=== PATIENT | male | born 1950 | race Caucasian/White ===

== ENCOUNTER 2024-06-09 08:29 | Emergency (ER) | payer OTHER ==
--- NOTE | 2024-06-09 09:13 | RAD REPORT ---
EXAMINATION: ONE VIEW CHEST XR CLINICAL INDICATION: Male, 73 years old.,COUGH TECHNIQUE: Frontal chest projection is submitted. Examination is limited by patient positioning and t echnique. COMPARISON: No prior exam. FINDINGS: The lungs are well inflated and clear. No pneumothorax or sizable effusion. The heart is normal in s ize. Mediastinal contours are unremarkable. IMPRESSION: No acute intrathoracic abnormalities.
[2024-06-09 10:25] LABS: Absolute Lymphocytes (CBC) 0.4 K/uL (0.7-4.9); Absolute Monocytes 0.6 K/uL (0.1-1.3); Absolute Neutrophil 5.2 K/uL (1.8-8.0); Basophils % 0.4 % (0-1.3); Eosinophils % 0.4 % (0-4.4); Hematocrit 41.5 % (39.6-49.0); Lymphocytes % 6.6 % (15.3-44.8); MCH 30.8 pg (27.0-35.0); MCHC 33.7 g/dL (32.0-36.0); MCV 91.4 fL (80-100); MPV 9.2 fL (7.6-11.3); Monocytes % 9.4 % (3.3-12.3); Neutrophils % 83.2 % (41.7-73.7); Nucleated Red Blood Cells % 0.1 % (0-0); Platelets 123 thou/uL (152-406); RBC Red Blood Cell Count 4.54 M/uL (4.33-5.43); Red Cell Distribution Width 13.3 % (12.1-15.2)
[2024-06-09 10:36] LABS: Anion Gap 7.6 mEq/L (5.0-15.0); Potassium 3.6 mEq/L (3.5-5.1)
[2024-06-09 10:48] LABS: SARS-CoV-2 Antigen CONTROL BLUE LINE VIS/BG OK; SARS-CoV-2 Antigen Rapid Res Positive (Negative)
--- NOTE | 2024-06-09 10:50 | EDPHYS ---
Physician Documentation [facility] Name: José Villanueva Age: 73 yrs Sex: Male : 1950 Arrival Date: 06/09/2024 Time: 08:29 Bed 7 Private MD: ED Physician Alex Beauchamp HPI: 06/09 10:49 This 73 yrs old Male presents to ER via Ambulatory with complaints of Flu ec2 Symptoms. 10:49 Patient arrives today for evaluation of URI signs and symptoms. Reports cough and ec2 congestion, rhinorrhea, frequent cough. No vomiting, no diarrhea.. Historical: - Allergies: 08:50 No Known Allergies; ss - Home Meds: 08:50 levothyroxine 100 mcg oral capsule 1 cap daily for hypothyroidism [Active]; pravastatin ss 40 mg oral tablet 1 tab daily [Active]; Metformin Oral [Active]; allopurinol 300 mg Oral tablet 1 tab daily [Active]; amlodipine 5 mg tablet 1 tab daily [Active]; montelukast 10 mg oral tablet 1 tab daily [Active]; fenofibrate 54 mg oral tablet 1 tab daily [Active]; propranolol 80 mg Oral tablet 0.5 tabs once [Active]; valsartan 320 mg oral tablet 1 tab daily [Active]; - PMHx: 08:50 Hypertensive disorder; Kidney disease; Diabetes mellitus; Hypothyroidism; ss - Immunization history:: Adult Immunizations up to date. - Infectious Disease History:: Denies. - Social history:: Smoking status: Patient denies any tobacco usage or history of. Patient/guardian denies using alcohol. ROS: 10:49 Constitutional: as per hpi ec2 Exam: 10:49 Constitutional: GEN: NAD Head: atraumatic Eyes: EOMI Ears: External ears are ec2 normal. CV: regular rate LUNGS: no respiratory distress ABD: non-distended SKIN: no evidence of rashes MSK: no evidence of trauma Vital Signs: 08:46 BP 138 / 75; Pulse 83; Resp 16; Temp 99.3(O); Pulse Ox 97% on R/A; Weight 102.06 kg; ss Height 5 ft. 10 in. ; Pain 4/10; 08:46 Body Mass Index 32.28 (102.06 kg, 177.8 cm) ss 08:46 Pain Scale: Adult ss MDM: 08:37 Medical Screening Exam initiated ec2 10:49 Data reviewed: vital signs, nurses notes. ED course: Patient arrives today for URI ec2 symptoms. Examination is unrevealing. Viral swabs obtained, patient is COVID-positive. Chest x-ray independently reviewed and interpreted by me, shows no lobar consolidation. Presentation consistent with coronavirus. Will discharge home. Return precautions reviewed.. 06/09 08:42 Order name: Influenza Screen (a \T\ B); Complete Time: 10:50 ec2 06/09 08:42 Order name: SARS RAPID; Complete Time: 10:50 ec2 06/09 08:42 Order name: CBC with Diff; Complete Time: 10:40 ec2 06/09 08:42 Order name: BMP; Complete Time: 10:40 ec2 06/09 08:42 Order name: CXR XRAY; Complete Time: 09:18 ec2 Administered Medications: 10:56 CANCELLED (Physician Discretion): mg IVP once ec2 11:26 Drug: Tessalon Perle PO 100 mg PO once Route: PO; 11:26 Follow up: Response: Medication administered at discharge. Disposition Summary: 06/09/24 10:50 Discharge Ordered Notes: Location: Home ec2 Condition: Stable ec2 Diagnosis - SARS-associated coronavirus as the cause of diseases classified elsewhere ec2 Followup: ec2 - With: Private Physician - When: - Reason: Re-evaluation by your physician Discharge Instructions: - Discharge Summary Sheet ec2 - COVID-19 ec2 Forms: - Medication Reconciliation Form ec2 - Antibiotic Education ec2 - Prescription Opioid Use ec2 - Patient Portal Instructions ec2 - Leadership Thank You Letter ec2 Prescriptions: - Paxlovid 300 mg (150 mg x 2)-100 mg Oral Tablet, Dose Pack - take 1 dose pack ORAL route as directed on dose pack take ONE 150 mg tablet of ec2 nirmatrelvir with ONE 100 mg tablet of ritonavir twice daily for 5 days; 1 unit; Refills: 0, Product Selection Permitted - Tessalon Perles 100 mg Oral Capsule - take 1 capsule ORAL route every 8 hours As needed; 15 capsule; Refills: 0, ec2 Product Selection Permitted Signatures: Dispatcher [employer] Ronel Avina RN RN Brenda Toledo RN RN hb Alex Beauchamp MD MD ec2 Corrections: (The following items were deleted from the chart) 08: 08:43 Influenza Screen (A \T\ B)+BA.LAB.BRZ ordered. EDMS EDMS 08:43 08:43 SARS-COV-2 Antigen Rapid+I.LAB.BRZ ordered. EDMS EDMS 08:43 08:43 CBC+H.LAB.BRZ ordered. EDMS EDMS 08:43 08:43 BASIC METABOLIC PANEL+C.LAB.BRZ ordered. EDMS EDMS 08:43 08:43 Chest Single View+RAD.RAD.BRZ ordered. EDMS EDMS 08:55 08:50 PMHx: thyroid problems; ss ss 10:56 10:52 Ketorolac IVP 15 mg IVP once ordered. ec2 ec2
--- NOTE | 2024-06-09 10:50 | ER ---
Nurse's Notes [facility] Name: José Villanueva Age: 73 yrs Sex: Male : 1950 Arrival Date: 06/09/2024 Time: 08:29 Bed 7 Private MD: Diagnosis: SARS-associated coronavirus as the cause of diseases classified elsewhere Presentation: 06/09 08:46 Chief complaint: Patient states: cough and congestion that began 2-3 days ago. ss Coronavirus screen: Client denies travel out of the [place] in the last 14 days. Ebola Screen: Patient denies exposure to infectious person. Patient denies travel to an Ebola-affected area in the 21 days before illness onset. Initial Sepsis Screen: Does the patient meet any 2 criteria? No. Patient's initial sepsis screen is negative. Does the patient have a suspected source of infection? No. Patient's initial sepsis screen is negative. Risk Assessment: Do you want to hurt yourself or someone else? Patient reports no desire to harm self or others. Onset of symptoms was June 07, 2024. 08:46 Method Of Arrival: Ambulatory 08:46 Acuity: AKASH 3 ss Historical: - Allergies: 08:50 No Known Allergies; ss - Home Meds: 08:50 levothyroxine 100 mcg oral capsule 1 cap daily for hypothyroidism [Active]; pravastatin ss 40 mg oral tablet 1 tab daily [Active]; Metformin Oral [Active]; allopurinol 300 mg Oral tablet 1 tab daily [Active]; amlodipine 5 mg tablet 1 tab daily [Active]; montelukast 10 mg oral tablet 1 tab daily [Active]; fenofibrate 54 mg oral tablet 1 tab daily [Active]; propranolol 80 mg Oral tablet 0.5 tabs once [Active]; valsartan 320 mg oral tablet 1 tab daily [Active]; - PMHx: 08:50 Hypertensive disorder; Kidney disease; Diabetes mellitus; Hypothyroidism; ss - Immunization history:: Adult Immunizations up to date. - Infectious Disease History:: Denies. - Social history:: Smoking status: Patient denies any tobacco usage or history of. Patient/guardian denies using alcohol. Screenin:45 [facility] ED Fall Risk Assessment (Adult) History of falling in the last 3 months, hb including since admission No falls in past 3 months (0 pts) Confusion or Disorientation No (0 pts) Intoxicated or Sedated No (0 pts) Impaired Gait No (0 pts) Mobility Assist Device Used No (0 pt) Altered Elimination No (0 pt) Score/Fall Risk Level 0 - 2 = Low Risk Oriented to surroundings, Maintained a safe environment, Educated pt \T\ family on fall prevention, incl call for assistance when getting out of bed. Abuse screen: Denies threats or abuse. Denies injuries from another. Nutritional screening: No deficits noted. Tuberculosis screening: No symptoms or risk factors identified. Assessment: 10:45 General: Appears in no apparent distress. Behavior is calm, cooperative. Pain: Pain hb currently is 4 out of 10 on a pain scale. Neuro: Level of Consciousness is awake, alert, obeys commands, Oriented to person, place, time, situation. Cardiovascular: Patient's skin is warm and dry. Respiratory: Reports shortness of breath cough that is Respiratory effort is even, unlabored, Respiratory pattern is regular, symmetrical. GI: No signs and/or symptoms were reported involving the gastrointestinal system. : No signs and/or symptoms were reported regarding the genitourinary system. EENT: No signs and/or symptoms were reported regarding the EENT system. Derm: Skin is pink, warm \T\ dry. Musculoskeletal: Reports body aches. Vital Signs: 08:46 BP 138 / 75; Pulse 83; Resp 16; Temp 99.3(O); Pulse Ox 97% on R/A; Weight 102.06 kg; ss Height 5 ft. 10 in. ; Pain 4/10; 08:46 Body Mass Index 32.28 (102.06 kg, 177.8 cm) ss 08:46 Pain Scale: Adult ED Course: 08:32 Patient arrived in ED. mr 08:33 Alex Beauchamp MD is Attending Physician. ec2 08:49 Triage completed. ss 08:50 Arm band placed on right wrist. ss 09:03 CXR XRAY In Process Unspecified. EDMS 10:07 Initial lab(s) drawn, by me, sent to lab. COVID swab sent to lab. Flu and/or RSV swab em1 sent to lab. Inserted saline lock: 20 gauge in right antecubital area, using aseptic technique. Blood collected. Flushed with 10 mL NS. 10:45 Patient has correct armband on for positive identification. Provided Education on: hb medications, follow up. 11:27 No provider procedures requiring assistance completed. IV discontinued, intact, hb bleeding controlled, No redness/swelling at site. Pressure dressing applied. Administered Medications: 10:56 CANCELLED (Physician Discretion): [id number] mg IVP once ec2 11:26 Drug: Tessalon Perle PO 100 mg PO once Route: PO; hb 11:26 Follow up: Response: Medication administered at discharge. hb Medication: 10:45 VIS not applicable for this client. hb Outcome: 10:50 Discharge ordered by . ec2 11:27 Discharged to home ambulatory, hb 11:27 Condition: stable 11:27 Discharge instructions given to patient, Instructed on discharge instructions, follow up and referral plans. medication usage, Demonstrated understanding of instructions, follow-up care, medications, Prescriptions given X 2, 11:28 Patient left the ED. hb Signatures: Dispatcher [employer] EDMS Hailey Forbes, Reg Reg mr RiveraObdulio em1 Ronel Castillo RN RN Brenda Toledo RN RN Alex Beauchamp MD MD ec2 Corrections: (The following items were deleted from the chart) 08:55 08:50 PMHx: thyroid problems; [facility]
[2024-06-09] MEDS ORDERED: BENZONATATE 100 MG CAP PO ONE (11:09)
[2024-06-09 11:46] VITALS: BP 138/75; TEMP 99.3; O2SAT 97
== END 2024-06-09 11:28 | disposition home or self-care (01) ==
LOC: ER 08:29
DX: U07.1 COVID-19 (principal); I10 Essential (primary) hypertension; E11.9 Type 2 diabetes mellitus without complications; E03.9 Hypothyroidism, unspecified
CPT/HCPCS: 36415; 71045; 80048; 85025; 87804; 87811; 99284